=== PATIENT | male | born 1990 | race American Indian/Alaskan Native ===

== ENCOUNTER 2019-04-12 14:20 | Emergency (ER) | payer SELFPAY ==
[2019-04-12] MEDS ORDERED: NEOMY 3.5 MG/BACIT 400 UNITS/POLY B 5000 UNITS/GM OINT PACKET TP ONE (20:35)
[2019-04-12] MEDS ORDERED: cephALEXin 500 MG CAP PO ONE (20:35)
[2019-04-12] MEDS ORDERED: IBUPROFEN 800 MG TAB PO ONE (20:35)
[2019-04-12] MEDS ORDERED: TETANUS,DIPH,PERTUSS(ACELL) VACCINE 0.5 ML SYRINGE IM ONE (20:35)
--- NOTE | 2019-04-12 20:59 | Emergency Department Report ---
- General Chief Complaint: Wound/Laceration Stated Complaint: LACERATION TO LT HAND Source: patient Mode of arrival: Ambulatory Limitations: No Limitations - History of Present Illness Initial Comments: Patient is a 29-year-old -[place] male with no past medical history presents to the ED with complaint of acute onset persistent painful and also left middle finger laceration after a ceiling fan accidentally cut his dorsal left middle finger causing extensive bleeding laceration during a New Year count-down celebration about 20 hours ago. Patient states that he had been cleaning the wound but the pain has worsened. Patient denies fever, chills, swelling, numbness and tingling or weakness of left middle finger, nausea or vomiting or nail avulsion. Patient admits that at the time he was intoxicated on alcohol and did not think that the injury was significant. -: Sudden, hour(s) (20) Location: other (left middle finger laceration) Extremity Location: Left: Hand (Dorsal Left middle finger laceration) Place: home Patient Tetanus UTD: No (Given during this visit) Context: accidental, sharp object use Associated Symptoms: pain. denies: loss of feeling/numbness, suspect foreign body present, unable to move injured part, weakness followed by dizziness, nausea/vomiting, fever, other - Related Data Previous Rx's Medication Instructions Recorded Last Taken Type Ibuprofen [Motrin] 800 mg PO Q8HR PRN #24 tablet 04/12/19 Unknown Rx cephALEXin [Keflex] 500 mg PO Q8HR #30 cap 04/12/19 Unknown Rx Allergies Allergy/AdvReac Type Severity Reaction Status Date / Time No Known Allergies Allergy Unverified 04/12/19 14:30 ED Review of Systems ROS: Stated complaint: LACERATION TO LT HAND Other details as noted in HPI Constitutional: denies: chills, fever Eyes: denies: eye pain, eye discharge, vision change ENT: denies: ear pain, throat pain Respiratory: denies: cough, shortness of breath, wheezing Cardiovascular: denies: chest pain, palpitations Endocrine: no symptoms reported Gastrointestinal: denies: abdominal pain, nausea, diarrhea Genitourinary: denies: urgency, dysuria Musculoskeletal: other (Left middle finger pain due to a bleeding laceration). denies: back pain, joint swelling, arthralgia Skin: other (Bleeding laceration on dorsal left middle finger with pain). denies: rash, lesions Neurological: denies: headache, weakness, paresthesias Psychiatric: denies: anxiety, depression Hematological/Lymphatic: denies: easy bleeding, easy bruising ED Past Medical Hx - Past Medical History Previous Medical History?: No - Surgical History Past Surgical History?: No - Social History Smoking Status: Never Smoker Substance Use Type: Alcohol - Medications Home Medications: Home Medications Medication Instructions Recorded Confirmed Last Taken Type Ibuprofen [Motrin] 800 mg PO Q8HR PRN #24 tablet 04/12/19 Unknown Rx cephALEXin [Keflex] 500 mg PO Q8HR #30 cap 04/12/19 Unknown Rx ED Physical Exam - General Limitations: No Limitations General appearance: alert, in no apparent distress - Head Head exam: Present: atraumatic, normocephalic, normal inspection - Eye Eye exam: Present: normal appearance, PERRL, EOMI Pupils: Present: normal accommodation - ENT ENT exam: Present: normal exam, normal orophraynx, mucous membranes moist, TM's normal bilaterally, normal external ear exam - Neck Neck exam: Present: normal inspection, full ROM - Respiratory Respiratory exam: Present: normal lung sounds bilaterally. Absent: respiratory distress, wheezes, rales, rhonchi, chest wall tenderness, accessory muscle use, decreased breath sounds - Cardiovascular Cardiovascular Exam: Present: regular rate, normal rhythm, normal heart sounds. Absent: systolic murmur, diastolic murmur, rubs, gallop - GI/Abdominal GI/Abdominal exam: Present: soft, normal bowel sounds. Absent: tenderness, guarding, rebound - Extremities Exam Extremities exam: Present: normal inspection, full ROM, tenderness (Left middle finger tenderness due to a bleeding present in the laceration on the dorsum of the left middle finger), normal capillary refill - Back Exam Back exam: Present: normal inspection, full ROM. Absent: tenderness - Neurological Exam Neurological exam: Present: alert, oriented X3, CN II-XII intact, normal gait, reflexes normal - Psychiatric Psychiatric exam: Present: normal affect, normal mood - Skin Skin exam: Present: warm, dry, intact, normal color, other (bleeding dorsal left middle finger 2 cm laceration). Absent: rash ED Course Vital Signs 04/12/19 14:42 Temperature 98.4 F Pulse Rate 83 Respiratory 16 Rate Blood Pressure 125/69 O2 Sat by Pulse 96 Oximetry ED Medical Decision Making - Medical Decision Making This is a 29 year-old male who presented to the ED with painful bleeding dorsal left middle finger laceration after his dorsal left middle finger was accidentally cut by a ceiling fun over 20 hours ago. In the ED, patient is alert and oriented 3 and is not in distress. Patient is not up-to-date with his tetanus vaccinations, and was therefore given a tetanus vacc ination in the ED. Patient was also treated for pain and the wound was cleaned thoroughly and dressed appropriately. The patient was discharged home on prophylactic oral antibiotic and pain medications, and was advised to follow-up with his primary care physician in 7-10 days for reevaluation. The patient's wound was mostly just because it had been open for over 12 hours and the suspicion that there was a right ear infection in place. Patient was therefore advised to clean the wound with soap and water, dress appropriately at home and take oral antibiotics prophylactically prevent further infection. Patient was otherwise advised to return to the ED immediately if symptoms get worse. - Differential Diagnosis Finger laceration; Abrasion; Contusion Critical care attestation.: If time is entered above; I have spent that time in minutes in the direct care of this critically ill patient, excluding procedure time. ED Disposition Clinical Impression: Laceration of left middle finger w/o foreign body w/o damage to nail Qualifiers: Encounter type: initial encounter Qualified Code(s): S61.213A - Laceration without foreign body of left middle finger without damage to nail, initial encounter Contusion of left hand including fingers Qualifiers: Encounter type: initial encounter Qualified Code(s): S60.222A - Contusion of left hand, initial encounter; S60.00XA - Contusion of unspecified finger without damage to nail, initial encounter Disposition: DC-01 TO HOME OR SELFCARE Is pt being admited?: No Does the pt Need Aspirin: No Condition: Stable Instructions: Finger Laceration (ED), Contusion in Adults (ED) Additional Instructions: Cleaned the wound with soap and water, and dress the wound appropriately. Take medications with food, drink plenty of fluids and follow-up with the primary care physician in 5-7 days for reevaluation or return to the ED immediately if symptoms get worse. Prescriptions: cephALEXin [Keflex] 500 mg PO Q8HR #30 cap Ibuprofen [Motrin] 800 mg PO Q8HR PRN #24 tablet PRN Reason: Pain , Severe (7-10) Referrals: [facility] [Outside] - 7-10 days Time of Disposition: 21:06 Print Language: [id number]
[2019-04-12 21:51] VITALS: BP 124/70
== END 2019-04-12 21:51 | disposition home or self-care (01) ==
LOC: ED 14:20
DX: S61.213A Laceration without foreign body of left middle finger without damage to nail, initial encounter (principal); S60.222A Contusion of left hand, initial encounter; W26.8XXA Contact with other sharp object(s), not elsewhere classified, initial encounter; Y93.89 Activity, other specified; Y92.89 Other specified places as the place of occurrence of the external cause; Y99.8 Other external cause status
CPT/HCPCS: 90471; 90715; A6250